=== PATIENT | female | born 1975 | race Caucasian/White ===

== ENCOUNTER 2016-12-11 08:31 | Outpatient (CLI) | payer OTHER ==
--- NOTE | 2016-12-11 14:10 | Magnetic Resonance Report ---
MRA NECK HEAD WITH CONTRAST: 12/11/16 CLINICAL: Left ear tinnitus. COMPARISON:None. TECHNIQUE: Axial whole brain T2 and axial contrast MR angiography of the head with review of axial source images on a 1.5 Leeann magnet. 15 cc of Multihance was injected intravenously for the contrast portion of the exam and consent was obtained prior to the administration of the contrast. FINDINGS: The [place] of [place] is intact with no aneurysm, stenosis or occlusion. Symmetric flow in bilateral LYNN, MCA and PHOTOGRAPHY ASSISTANT. The carotid arteries are intact. No vascular malformation is identified. The posterior circulation is intact with intact basilar and vertebral arteries. The left vertebral artery is dominant. IMPRESSION: Normal study.
== END 2016-12-11 08:32 | disposition home or self-care (01) ==
LOC: SPVIMAG 08:31
PROVIDERS: ATTEND Otolaryngology
DX: H93.12 Tinnitus, left ear (principal)
CPT/HCPCS: 70545; A9577